=== PATIENT | female | born 1975 | race Caucasian/White ===

== ENCOUNTER 2020-11-17 14:16 | Inpatient (IN) | payer OTHER, SELFPAY ==
[2020-11-17] VITALS (8 sets, daily range): BP systolic 109–133; BP diastolic 63–83; PULSE 83–100; RESP 13–27; TEMP 36.8–37.7; O2SAT 87–95; BMI 38.7
--- NOTE | 2020-11-17 15:08 | XRR_ITS ---
PROCEDURE INFORMATION: Exam: XR Chest Exam date and time: 11/17/2020 3:12 PM Age: 45 years old Clinical indication: Fever TECHNIQUE: Imaging protocol: XR of the chest. Views: 1 view. COMPARISON: No relevant prior studies available. FINDINGS: Lungs: Nonspecific ground-glass infiltrates in the periphery of the bilateral lungs. Punctate calcified pulmonary granulomas are noted. Pleural spaces: No pleural effusion or pneumothorax noted. Heart/Mediastinum: Minimal lymph node calcifications are seen in the emilio. Bones/joints: Degenerative spine changes are noted. No fracture or other acute osseous abnormality. XR/XR chest 1V portable [id number] IMPRESSION: Nonspecific ground-glass infiltrates in the periphery of the bilateral lungs. Consider nonspecific viral pneumonia.
--- NOTE | 2020-11-17 15:19 | W.ED.FEVER ---
HPI - Fever General: Chief Complaint: Fever Stated Complaint: COVID SYMPTOMS HIGH FEVER Time Seen by Provider: 11/17/20 15:05 Source: patient and family Mode of arrival: ambulatory Limitations: no limitations History of Present Illness: HPI Narrative: Melba is a very nice 45-year-old female who comes in complaining of fever and Covid symptoms. Patient states for the past 11 days she had cough, sore throat, generalized malaise, muscle aches and pains and myalgias. Patient was told clinically that she had Covid but never received an actual test. The patient was prescribed a course of Zithromax and was also given a shot of steroids but she states this has not helped her symptoms. She denies any headache or urinary symptoms. Her cough is dry. Denies any neck pain or stiffness. She does have a cough. She is otherwise she just feels worn down and weak. Associated symptoms: Reports chills; Deny abdominal pain, flank pain, chest pain, confusion, diarrhea, dysuria, extremity pain, headache(s), nausea or vomiting Review of Systems Const: Reports: fever(s), chills, body aches, fatigue and malaise; Denies: diaphoresis Eyes: Denies: change in vision, blurry vision, photophobia, eye discomfort, eye discharge, eye redness or yellow eyes ENMT: Denies: throat pain, odynophagia, hoarseness, swelling of lips/tongue, ear or mastoid pain, ear discharge, change in hearing or nasal discharge Card: Denies: chest pain, palpitations, irregular heart rhythm, edema, lightheadedness, syncope, pre-syncope, dyspnea on exertion or orthopnea Resp: Reports: dyspnea and non-productive cough; Denies: productive cough, wheezing, hemoptysis or chest congestion GI: Denies: abdominal pain, nausea, vomiting, hematemesis, coffee ground emesis, heartburn, diarrhea, constipation, GI cramping, hematochezia or melena : Denies: flank pain, dysuria, urinary frequency, urinary urgency or hematuria Musc: Denies: neck pain, back pain, extremity pain, extremity swelling, joint pain, joint swelling, joint redness, joint warmth or joint stiffness Skin/Breast: Denies: rash, pruritus, erythema, skin pain or skin tenderness Neuro: Denies: headache(s), numbness in extremities, weakness in extremities, sensory changes, lack of coordination, difficulty walking, dizziness, vertigo, confusion, Slurred speech present or seizure-like activity Frank/Lymph: Denies: easy bruising, easy bleeding, petechiae, purpura or enlarged lymph nodes All/Imm: Denies: urticaria, throat swelling, tongue swelling, facial swelling or acute wheezing PFSH ED PFSH: Medical History CKD (chronic kidney disease) stage 3, GFR 30-59 ml/min Hypertension Physical Exam Const: COMMON NORMALS: no acute distress, patient oriented x3, no limitations and alert GENERAL APPEARANCE: cooperative HENMT: COMMON NORMALS: normocephalic, atraumatic, external ears normal, EAC's normal and Normal external nose present HEAD & SCALP: normal to inspection, normocephalic and atraumatic FACE & SINUS: normal facial exam and face symmetric NOSE: Normal external nose present and Normal nares present EXTERNAL EAR: Yes external ears normal EXTERNAL AUDITORY CANAL: EAC's normal MOUTH: Normal oral and palatal mucosa present, lip normal and tongue normal Eye: COMMON NORMALS: Equal, round and reactive pupils present and conjunctivae normal GENERAL EYE: appearance normal, both eyes and all related structures ALIGNMENT: Yes alignment normal PERIORBITAL: periorbital findings normal EYELID: eyelids normal CONJUNCTIVA: Yes conjunctivae normal SCLERA: sclerae normal PUPIL: Yes Equal, round and reactive pupils present Neck/C-Spine: COMMON NORMALS: full ROM, no lymphadenopathy, supple, no meningeal signs and no JVD GENERAL: Yes normal visual inspection and Yes trachea midline Chest: COMMONS NORMALS: normal inspection of the chest and normal palpation of entire chest wall Resp: COMMON NORMALS: normal respiratory effort, No retractions, No use of accessory muscles and clear to auscultation bilaterally EFFORT & INSPECTION: Yes able to speak in complete sentences and Yes symmetric chest movement AUSCULTATION: clear to auscultation bilaterally, no crackles, no rales, no rhonchi and no wheezes Cardio: COMMON NORMALS: no JVD, regular rate, regular rhythm, S1 normal heart sound present and S2 normal heart sound present RATE: regular rate RHYTHM: regular rhythm HEART SOUNDS: S1 normal heart sound present, S2 normal heart sound present, no click, no gallops, no murmurs and no rubs GI: COMMON NORMALS: Soft to palpation and No hepatosplenomegaly present PALPATION: Yes Soft to palpation, No Tenderness to palpation present (GI), No Guarding due to palpation present (GI), No Rigid due to palpation, Yes No hepatosplenomegaly present, No Hernia present, No Palpable mass present and No Pulsatile mass present : COMMON NORMALS: Yes no CVA tenderness BLADDER/KIDNEY EXAM: Yes no CVA tenderness EXTERNAL FEMALE EXAM: No Hernia present Back/Pelvis: COMMON NORMALS: no CVA tenderness, thoracic and lumbar spine normal to inspection, no thoracic nor lumbar tenderness and thoraco-lumbar ROM normal Extremity: COMMON NORMALS: normal to inspection, full ROM, capillary refill normal, no joint enlargement, no clubbing, cyanosis or edema and no calf tenderness Neuro: COMMON NORMALS: patient oriented x3, CN's II-XII intact bilaterally, moves all extremities, no focal motor deficits and no sensory deficits noted SENSORIUM/ORIENTATION: Yes alert MENINGEAL SIGNS: Yes no meningeal signs SPEECH: speech normal Psych: COMMON NORMALS: mental status grossly normal, Normal thought process present, cooperative, normal affect, speech normal and activity/motor behavior normal SPEECH: Yes normal speech THOUGHT PROCESS: Normal thought process present Skin: COMMON NORMALS: no rashes or lesions noted, turgor normal, no jaundice, no petechiae and no mottling GENERAL SKIN EXAM: no rashes or lesions noted and turgor normal Course Vital Signs: Vital signs: Vital Signs Temperature 98.3 F 11/17/20 14:31 Pulse Rate 87 11/17/20 14:31 Respiratory Rate 18 11/17/20 14:31 Blood Pressure 110/63 11/17/20 14:31 Pulse Oximetry 95 11/17/20 14:31 MDM - Fever MDM Narrative: Medical decision making narrative: 1800 - Care turned over to Dr. Castelan at change of shift. Lab Data: Attestation: I reviewed the patient's lab results. Labs: Lab Results 11/17/20 11/17/20 11/17/20 Range/Units 16:00 16:04 16:04 WBC 3.9 L (4.0-10.0) 10^3/ uL RBC 5.38 H (4.1-5.3) 10^6/u L Hgb 11.0 L (11.5-15.3) g/dL Hct 35.9 L (37.0-47.0) % MCV 66.7 L (81-99) fL MCH 20.4 L (28.0-34.0) pg MCHC 30.6 (30.0-36.0) g/dL RDW 16.2 H (12.1-15.1) % Plt Count 162 (130-400) 10^3/c mm MPV Not Reportable Neut % (Auto) 77.9 % Lymph % (Auto) 18.7 % [place] % (Auto) 2.6 % Eos % (Auto) 0.0 % Baso % (Auto) 0.3 % Neut # (Auto) 3.01 (1.8-7.7) 10^3/u L Lymph # (Auto) 0.7 L (0.8-4.8) 10^3/u L [place] # (Auto) 0.1 L (0.2-0.9) 10^3/u L Eos # (Auto) 0.0 (0.0-0.8) 10^3/u L Baso # (Auto) 0.0 (0.0-0.1) 10^3/u L Nucleated RBC % (a uto) 0 % Nucleated RBCs # 0.0 /100WBC PT (12.1-14.9) SECO NDS INR (0.8-1.2) APTT (23.9-36.7) SECO NDS Sodium 138 (136-145) mmol/L Potassium 4.0 (3.5-5.1) mmol/L Chloride 102 (98-107) mmol/L Carbon Dioxide 24 (22-29) mmol/L Anion Gap 16.0 (5-19) BUN 19 (6-20) mg/dL Creatinine 1.4 H (0.5-0.9) mg/dL GFR Calculation 40.7 L (90-130) mL/min Glucose 115 (65-115) mg/dL Calculated Osmolal ity 289 (285-295) mOsm/k g Lactic Acid (0.5-2.2) mmol/L Calcium 8.3 L (8.5-10.5) mg/dL Magnesium 2.0 (1.7-2.3) mg/dL Total Bilirubin 0.3 (0.15-1.2) mg/dL AST 371 H (0-32) U/L ALT 203 H (0-33) U/L Alkaline Phosphata se 59 (35-105) IU/L Total Protein 7.3 (6.6-8.7) g/dL Albumin 4.1 (3.5-5.2) g/dL Globulin 3.2 (1.3-4.6) g/dL Lipase (13-60) U/L Urine Color Dark yellow (Yellow) Urine Appearance Sl hazy (CLEAR) Urine pH 5 (5-7) Ur Specific Gravit y 1.020 (1.005-1.030) Urine Protein 2+ H (Negative) Urine Glucose (UA) Norm (Normal) Urine Ketones Negative (Negative) Urine Blood 3+ H (Negative) Urine Nitrate Negative (Negative) Urine Bilirubin 1+ H (Negative) Urine Urobilinogen Norm (Negative) mg/dL Ur Leukocyte Angelina ase Negative (Negative) Urine RBC 15-25 H (0-2) /hpf Urine WBC 5-10 H (0-5) /hpf Ur Squamous Epith Cells 0-4 H (0-5) /hpf Amorphous Sediment Not Reportable Urine Bacteria 2+ H (NONE) /hpf Hyaline Casts 0-4 H /lpf Coarse Granular Ca sts 15-25 H /lpf Urine Mucus Trace /hpf Acetaminophen (10-30) ug/mL Influenza Type A A g (Negative) Influenza Type B A g (Negative) SARS-CoV-2 Ag (Rap id) (Negative) 11/17/20 11/17/20 11/17/20 Range/Units 16:04 16:04 16:08 WBC (4.0-10.0) 10^3/ uL RBC (4.1-5.3) 10^6/u L Hgb (11.5-15.3) g/dL Hct (37.0-47.0) % MCV (81-99) fL MCH (28.0-34.0) pg MCHC (30.0-36.0) g/dL RDW (12.1-15.1) % Plt Count (130-400) 10^3/c mm MPV Neut % (Auto) % Lymph % (Auto) % [place] % (Auto) % Eos % (Auto) % Baso % (Auto) % Neut # (Auto) (1.8-7.7) 10^3/u L Lymph # (Auto) (0.8-4.8) 10^3/u L [place] # (Auto) (0.2-0.9) 10^3/u L Eos # (Auto) (0.0-0.8) 10^3/u L Baso # (Auto) (0.0-0.1) 10^3/u L Nucleated RBC % (a uto) % Nucleated RBCs # /100WBC PT (12.1-14.9) SECO NDS INR (0.8-1.2) APTT (23.9-36.7) SECO NDS Sodium (136-145) mmol/L Potassium (3.5-5.1) mmol/L Chloride (98-107) mmol/L Carbon Dioxide (22-29) mmol/L Anion Gap (5-19) BUN (6-20) mg/dL Creatinine (0.5-0.9) mg/dL GFR Calculation (90-130) mL/min Glucose (65-115) mg/dL Calculated Osmolal ity (285-295) mOsm/k g Lactic Acid 1.8 (0.5-2.2) mmol/L Calcium (8.5-10.5) mg/dL Magnesium (1.7-2.3) mg/dL Total Bilirubin (0.15-1.2) mg/dL AST (0-32) U/L ALT (0-33) U/L Alkaline Phosphata se (35-105) IU/L Total Protein (6.6-8.7) g/dL Albumin (3.5-5.2) g/dL Globulin (1.3-4.6) g/dL Lipase 79 H (13-60) U/L Urine Color (Yellow) Urine Appearance (CLEAR) Urine pH (5-7) Ur Specific Gravit y (1.005-1.030) Urine Protein (Negative) Urine Glucose (UA) (Normal) Urine Ketones (Negative) Urine Blood (Negative) Urine Nitrate (Negative) Urine Bilirubin (Negative) Urine Urobilinogen (Negative) mg/dL Ur Leukocyte Angelina ase (Negative) Urine RBC (0-2) /hpf Urine WBC (0-5) /hpf Ur Squamous Epith Cells (0-5) /hpf Amorphous Sediment Urine Bacteria (NONE) /hpf Hyaline Casts /lpf Coarse Granular Ca sts /lpf Urine Mucus /hpf Acetaminophen < 5.0 L (10-30) ug/mL Influenza Type A A g Negative (Negative) Influenza Type B A g Negative (Negative) SARS-CoV-2 Ag (Rap id) (Negative) 11/17/20 11/17/20 Range/Units 16:25 17:10 WBC (4.0-10.0) 10^3/ uL RBC (4.1-5.3) 10^6/u L Hgb (11.5-15.3) g/dL Hct (37.0-47.0) % MCV (81-99) fL MCH (28.0-34.0) pg MCHC (30.0-36.0) g/dL RDW (12.1-15.1) % Plt Count (130-400) 10^3/c mm MPV Neut % (Auto) % Lymph % (Auto) % [place] % (Auto) % Eos % (Auto) % Baso % (Auto) % Neut # (Auto) (1.8-7.7) 10^3/u L Lymph # (Auto) (0.8-4.8) 10^3/u L [place] # (Auto) (0.2-0.9) 10^3/u L Eos # (Auto) (0.0-0.8) 10^3/u L Baso # (Auto) (0.0-0.1) 10^3/u L Nucleated RBC % (a uto) % Nucleated RBCs # /100WBC PT 12.80 (12.1-14.9) SECO NDS INR 0.94 (0.8-1.2) APTT 29.7 (23.9-36.7) SECO NDS Sodium (136-145) mmol/L Potassium (3.5-5.1) mmol/L Chloride (98-107) mmol/L Carbon Dioxide (22-29) mmol/L Anion Gap (5-19) BUN (6-20) mg/dL Creatinine (0.5-0.9) mg/dL GFR Calculation (90-130) mL/min Glucose (65-115) mg/dL Calculated Osmolal ity (285-295) mOsm/k g Lactic Acid (0.5-2.2) mmol/L Calcium (8.5-10.5) mg/dL Magnesium (1.7-2.3) mg/dL Total Bilirubin (0.15-1.2) mg/dL AST (0-32) U/L ALT (0-33) U/L Alkaline Phosphata se (35-105) IU/L Total Protein (6.6-8.7) g/dL Albumin (3.5-5.2) g/dL Globulin (1.3-4.6) g/dL Lipase (13-60) U/L Urine Color (Yellow) Urine Appearance (CLEAR) Urine pH (5-7) Ur Specific Gravit y (1.005-1.030) Urine Protein (Negative) Urine Glucose (UA) (Normal) Urine Ketones (Negative) Urine Blood (Negative) Urine Nitrate (Negative) Urine Bilirubin (Negative) Urine Urobilinogen (Negative) mg/dL Ur Leukocyte Angelina ase (Negative) Urine RBC (0-2) /hpf Urine WBC (0-5) /hpf Ur Squamous Epith Cells (0-5) /hpf Amorphous Sediment Urine Bacteria (NONE) /hpf Hyaline Casts /lpf Coarse Granular Ca sts /lpf Urine Mucus /hpf Acetaminophen (10-30) ug/mL Influenza Type A A g (Negative) Influenza Type B A g (Negative) SARS-CoV-2 Ag (Rap id) Negative (Negative) Imaging Data^: CXR: Attestation: I personally reviewed and interpreted this imaging study as follows: My impression: Normal heart size. Diffuse patchy infiltrates consistent with a viral pneumonitis Discharge Plan Discharge Condition: Stable Prescriptions: No Action labetalol 200 mg tablet 200 mg PO BID RF: 0 albuterol sulfate 2.5 mg /3 mL (0.083 %) solution for nebulization 2.5 mg inhalation Q6H RF: 0 azithromycin 250 mg tablet See Rx Instructions .ROUTE .COMPLEX RF: 0 potassium chloride 10 mEq tablet extended release 20 meq PO QAM RF: 0 Tylenol Extra Strength 500 mg Tablet 1,000 mg PO PRN RF: 0 Vitamin D2 1,250 mcg (50,000 unit) capsule 50,000 unit PO Q7D RF: 0 ProAir HFA 90 mcg/actuation Hfa Aerosol Inhaler 2 puff INHALATION Q4H PRN (Reason: Shortness Of Breath) RF: 0 losartan-hydrochlorothiazide 50-12.5 mg tablet 1 tab PO DAILY RF: 0 Coding Level of Care Code ED Mission Coordinator for Chg Fwd Exam Comprehensive
[2020-11-17 16:25] LABS: Bilirubin Urine 1+ (Negative); Blood Urine 3+ (Negative); Glucose Urine UA Norm (Normal); Ketones Urine Negative (Negative); Leukocyte Esterase Urine Negative (Negative); Nitrate Urine Negative (Negative); Protein Urine 2+ (Negative); Urine Appearance SL Hazy (CLEAR); Urine Color Dark Yellow (Yellow); Urobilinogen Urine Norm (Negative); pH Urine 5 (5-7)
[2020-11-17 16:26] LABS: Add Urine Microscopic? YES
[2020-11-17 16:30] LABS: Add Urine Culture? Yes; Bacteria Urine 2+ /hpf; Coarse Granular Casts Urine 15-25 /lpf; Hyaline Casts Urine 0-4 /lpf; Mucus Urine TRACE /hpf; RBC Urine 15-25 /hpf (0-2); Squamous Epithelial Cell Urine 0-4 /hpf (0-5)
[2020-11-17 16:45] LABS: Influenza A by IFA Negative (Negative); Influenza B by IFA Negative (Negative)
[2020-11-17 16:45] LABS: SARS Covid-2 Antigen Negative (Negative)
[2020-11-17 16:46] LABS: Lactic Sepsis W/Reflex 1.8 mmol/L (0.5-2.2)
[2020-11-17 16:48] LABS: Alanine Aminotransferase 203 U/L (0-33); Albumin Level 4.1 g/dL (3.5-5.2); Alkaline Phosphatase 59 IU/L (35-105); Aspartate Amino Transferase 371 U/L (0-32); Blood Urea Nitrogen 19 mg/dL (6-20); Calcium 8.3 mg/dL (8.5-10.5); Carbon Dioxide 24 mmol/L (22-29); Chloride 102 mmol/L (98-107); Globulin 3.2 g/dL (1.3-4.6); Glomerular Filtration Rate 40.7 mL/min (90-130); Glucose 115 mg/dL (65-115); Osmolality Calculated 289 mOsm/kg (285-295); Sodium 138 mmol/L (136-145); Total Bilirubin 0.3 mg/dL (0.15-1.2); Total Protein 7.3 g/dL (6.6-8.7)
[2020-11-17 16:54] LABS: Basophils % 0.3 %; Hematocrit 35.9 % (37.0-47.0); Lymphocytes # 0.7 10^3/uL (0.8-4.8); Lymphocytes % 18.7 %; Mean Corpuscular HGB Conc 30.6 g/dL (30.0-36.0); Mean Corpuscular Hemoglobin 20.4 pg (28.0-34.0); Mean Corpuscular Volume 66.7 fL (81-99); Monocytes # 0.1 10^3/uL (0.2-0.9); Monocytes % 2.6 %; Neutrophils # 3.01 10^3/uL (1.8-7.7); Neutrophils % 77.9 %; Nucleated Red Blood Cells % 0 %; Platelet Count 162 10^3/cmm (130-400); Red Blood Count 5.38 10^6/uL (4.1-5.3); Red Cell Distribution Width 16.2 % (12.1-15.1); White Blood Count 3.9 10^3/uL (4.0-10.0)
--- NOTE | 2020-11-17 16:59 | USR_ITS ---
PROCEDURE INFORMATION: Exam: US Abdomen, Limited; Right Upper Quadrant Exam date and time: 11/17/2020 5:50 PM Age: 45 years old Clinical indication: Other: Elevated labs; Additional info: Pain TECHNIQUE: Imaging protocol: US abdomen. Real time ultrasound with image documentation. Limited exam focused on the right upper quadrant. COMPARISON: No relevant prior studies available. FINDINGS: Liver: Hepatomegaly noted. Liver measures 19 cm in length. Abnormally increased hepatic echogenicity, consistent with hepatic steatosis. No focal liver lesion demonstrated. Gallbladder: The gallbladder is unremarkable. No gallstones or sludge demonstrated. No gallbladder wall thickening. No pericholecystic fluid. Common bile duct: No biliary dilatation. The common duct measures 2 mm in diameter.The aorta is unremarkable as demonstrated. Pancreas: Limited visualization of the pancreas. No gross pancreatic abnormality. Right kidney: Right kidney measures 11.6 cm in length. Normal renal echotexture. No hydronephrosis. No cyst, mass, or calculus demonstrated. Inferior vena cava: The intrahepatic portion of the inferior vena cava is unremarkable. US/US gall bladder [id number] IMPRESSION: 1. Hepatomegaly noted. Liver measures 19 cm in length. Abnormally increased hepatic echogenicity, consistent with hepatic steatosis. 2. Hepatomegaly and hepatic steatosis. No focal liver lesion. 3. No gallbladder/biliary disease demonstrated.
--- NOTE | 2020-11-17 17:00 | CTR_ITS ---
PROCEDURE INFORMATION: Exam: CT Abdomen And Pelvis With Contrast Exam date and time: 11/17/2020 5:18 PM Age: 45 years old Clinical indication: Abnormal findings; Abnormal lab test; Elevated liver enzymes; Patient HX: Elev ast/alt n/v and hematuria; Additional info: Abdominal pain TECHNIQUE: Imaging protocol: Computed tomography of the abdomen and pelvis with contrast. Radiation optimization: All CT scans at this facility use at least one of these dose optimization techniques: automated exposure control; mA and/or kV adjustment per patient size (includes targeted exams where dose is matched to clinical indication); or iterative reconstruction. Contrast material: VISI 320; Contrast volume: 95 ml; Contrast route: INTRAVENOUS (IV); COMPARISON: US gall bladder [id number] 11/17/2020 5:35 PM RADIATION DOSE METRICS: Total DLP (mGy-cm): 1822.12 FINDINGS: Lungs: Nonspecific ground-glass infiltrates at the bilateral lung bases. Punctate calcified granulomas also noted at the lung bases. Liver: Decreased hepatic density is noted, consistent with hepatic steatosis. Gallbladder and bile ducts: No calcified stones. No ductal dilation. Pancreas: The pancreas is normal in appearance. No pancreatic duct dilatation. Spleen: Calcified granulomas are noted in the spleen. Adrenal glands: The adrenal glands appear within normal limits. Kidneys and ureters: The kidneys are normal in morphology. No hydronephrosis. No solid mass. Stomach and bowel: No acute gastric abnormality demonstrated. The small bowel is unremarkable as demonstrated. No acute abnormality/inflammatory change of the colon. The small bowel is unremarkable as demonstrated. Appendix: The appendix is normal in appearance. No evidence of appendicitis. Intraperitoneal space: No pneumoperitoneum. No significant fluid collection. Vasculature: No abdominal aortic aneurysm. Lymph nodes: No pathologically enlarged lymph nodes are demonstrated. Urinary bladder: The urinary bladder is unremarkable in appearance. Reproductive: Uterus and adnexa appear unremarkable. Bones/joints: Mild degenerative spine changes. No acute osseous abnormality. Soft tissues: Unremarkable. CT/CT abdomen pelvis w con* [id number] IMPRESSION: 1. Nonspecific ground-glass infiltrates at the bilateral lung bases. Consider nonspecific viral pneumonia. 2. Decreased hepatic density is noted, consistent with hepatic steatosis. 3. Findings of old granulomatous disease are identified. Radiation Dose CTDIVOL = (mGy): DLP = 1822.12 (mGy-cm)
[2020-11-17 17:05] LABS: Slide Review Slide Review Perform
[2020-11-17] MEDS: sodium chloride 0.9% 1,000 ML 999 ML IV (17:05)
[2020-11-17] MEDS: cefTRIAXone 1,000 MG in sodium chloride 0.9% (plus) 50 ML 100 MG IV (17:16)
[2020-11-17 17:17] LABS: Lipase 79 U/L (13-60)
[2020-11-17 17:19] LABS: Acetaminophen < 5.0 ug/mL (10-30)
[2020-11-17 17:47] LABS: INR 0.94 (0.8-1.2)
[2020-11-17 17:48] LABS: Partial Thromboplastin Time 29.7 SECONDS (23.9-36.7)
[2020-11-17] MEDS: iodixanol 320 mg/mL 100mL Btl IV (17:54)
[2020-11-17 18:31] LABS: Hepatitis A Antibody IgM Non-Reactive (Nonreactive); Hepatitis B Core AB, Total Non-Reactive (Nonreactive); Hepatitis B Surface AB 3.5 (11.5-1000); Hepatitis B Surface Antigen Non-Reactive (Nonreactive); Hepatitis C Virus Antibody Non-Reactive (Nonreactive)
[2020-11-17 18:44] LABS: ABG PCO2 32.2 mmHg (35-45); ABG PH Result 7.45 (7.35-7.45); Alveolar-Arterial Oxygen Gradi 7.9 mmHg (5-10); Arterial Blood Gas Hematocrit 31.7 % (37-47); Base Excess ABG -1.1 mmol/L (-2.0-2.0); Blood Gas Allen Test Pos; Blood Gas Operator Identificat CAK; Blood Gas Sample Site Radial, left; Blood Gas Sample Type Arterial; Carboxyhemoglobin 0.7 %THgb (0.4-20.1); HCO3 ABG 22.4 mmol/L (22-26); HGB O2 Sat 83.6 % (95-100); Ionized Calcium Level - ABG 1.1 mmol/L (1.1-1.4); Methemoglobin 0.8 % (0.4-1.5); Oxygen Device ROOM AIR; Oxygen Saturation ABG 84.9; PO2 ABG 48.4 mmHg (80.0-100.0); Potassium Level - ABG 3.9 mmol/L (3.5-5.0); Total Hemoglobin 10.3 g/dL (12-16)
--- NOTE | 2020-11-17 19:33 | P.HP_ITS ---
Providers/Chief Complaint Chief Complaint: COVID SYMPTOMS HIGH FEVER History of Present Illness Melba Okeefe is a 45 year old female who has previous history of hypertension, presented today with chief complaint of shortness of breath, myalgias, fever and diarrhea. Patient is stating that her symptoms started 11 days ago, at home she noticed fever of 106 last night, her oxygen saturation has been trending down her lowest saturation reading was 80% on room air, she is denying chest pain however endorsing diarrhea without any vomiting, because of worsening of her symptoms she decided to come to the hospital for further evaluation. Diagnosis in the ER revealed sepsis, concerning laboratory findings consistent with viral pneumonia, chest x-ray showing groundglass opacities, mild transaminases abnormality noted CT abdomen revealed fatty infiltration of liver, no active cholelithiasis or cholecystitis Covid antigen negative however PCR sent, flu panel negative Hepatitis panel negative Started on remdesivir and Decadron currently saturating well on 4 L nasal cannula, ABG consistent with severe hypoxia, meets sepsis criteria Review of Systems Const: Reports: fever(s), chills, body aches, change in appetite, fatigue and malaise; Denies: change in weight Eyes: Denies: change in vision ENMT: Denies: throat pain Card: Reports: dyspnea on exertion; Denies: chest pain Resp: Reports: dyspnea GI: Reports: nausea and diarrhea; Denies: abdominal pain : Denies: flank pain Musc: Denies: neck pain Skin/Breast: Denies: rash Neuro: Denies: headache(s) Psych: Reports: anxiety Endo: Denies: polyuria Frank/Lymph: Denies: easy bruising All/Imm: Denies: urticaria Medications/Allergies Home Medications Medication Instructions Recorded Confirmed Last Taken Type acetaminophen [Tylenol Extra 1,000 mg PO PRN 11/17/20 11/17/20 11/17/20 History Strength] albuterol sulfate 2.5 mg INHALATION Q6H 11/17/20 11/17/20 11/17/20 12:00 History albuterol sulfate [ProAir HFA] 2 puff INHALATION Q4H PRN 11/17/20 11/17/20 U nknown History azithromycin See Rx Instructions .ROUTE .COMPLEX 11/17/20 11/17/20 11/17/20 06:00 History LAST DOSE TODAY ergocalciferol (vitamin D2) 50,000 unit PO Q7D 11/17/20 11/17/20 Unknown History [Vitamin D2] labetalol 200 mg PO BID 11/17/20 11/17/20 11/17/20 06:00 History losartan-hydrochlorothiazide 1 tab PO DAILY 11/17/20 11/17/20 11/17/20 History potassium chloride 20 meq PO QAM 11/17/20 11/17/20 11/17/20 History Allergies Allergy/AdvReac Type Severity Reaction Status Date / Time Penicillins Allergy ALGY-Rash Verified 11/17/20 17:23 PFSH Acute PFSH: Medical History CKD (chronic kidney disease) stage 3, GFR 30-59 ml/min Hypertension Surgical History No pertinent past surgical history Family History Other Diabetes Denies family history of Chronic kidney disease (CKD) Cancer Social History Smoking and tobacco status: never smoked Alcohol intake: never Substance/Drug Use: never Household members: spouse Housing: House Marital status: Vitals/I&O/Wt Last Vital Signs Temp 98.3 F 11/17/20 14:31 Pulse 90 11/17/20 19:00 Resp 27 H 11/17/20 19:00 BP 119/74 11/17/20 19:00 Pulse Ox 92 11/17/20 19:00 Weight last 48 hrs Weight 108.862 kg Physical Exam Narrative: EXAM NARRATIVE: Young female, appears stated age, severely dehydrated with dry mucous membranes, facial flushing Currently saturating well on folded nasal cannula Hemodynamically stable Tachycardic S1, S2 sinus tachycardia no signs of heart failure Bilateral breath sounds no active wheezing rhonchi or crackles No active use of respiratory sensory muscles Abdomen soft nontender Lower extremity no edema gangrene ulcer Appropriate mood and affect Very cooperative and pleasant during my evaluation at the bedside No sign of cellulitis Data : 11/17/20 16:04 11/17/20 16:04 Micro: Microbiology 11/17/20 17:10 Blood Culture - Preliminary Blood SPECIMEN COLLECTED 11/17/20 16:04 Blood Culture - Preliminary Blood SPECIMEN COLLECTED A&P Assessment and plan (1) Ongoing symptomatic disease due to COVID-19 virus: Status: Acute (2) Sepsis: Status: Acute Additional A&P Information Sepsis secondary to viral pneumonia Her symptoms are consistent with COVID-19 SARS Currently saturating well on 40 nasal cannula Severe category Started on Decadron and remdesivir, vitamin C and zinc regimen Check inflammatory panel every 48 hours Requested procalcitonin level Sepsis criteria met with fever, tachycardia, leukopenia Mild transaminases secondary to COVID-19/sepsis covid Antigen negative however PCR sent Anticoagulation with heparin Chronic kidney disease Patient is attributing her chronic kidney disease to hypertension and use of nephrotoxic agents I will keep her on labetalol for now Severe dehydration Patient has dry mucous membranes, extremely thirsty Would keep her on low-dose maintenance fluid closely monitor for development of pulmonary edema or signs of fluid overload Check CPK Hematuria No signs of UTI no urolithiasis Please repeat UA before discharge to rule out persistent hematuria Full code Cardiac diet DVT prophylaxis Heparin Her is not experiencing similar symptoms, however he was educated to get Covid test in case he develops symptoms Attestations Medical Necessity Statement*: Anticipating stay in the hospital because more than 2 midnights for COVID-19 sepsis, qualifies for severe category Time Spent in Patient Care: (>than 50% of time spent in counselling and/or direct pt care on unit) . 40mins Coding Level of Care Code Acute Sterile Instrument Technician for Bhanu Sanchez Diagnoses Ongoing symptomatic disease due to COVID-19 virus U07.1 Sepsis A41.9
[2020-11-17] MEDS: acetaminophen 500 mg Tablet 1000 MG PO (20:06)
[2020-11-17] MEDS: sodium chloride 0.9% 500 ML 999 ML IV (20:20)
[2020-11-17 21:37] LABS: D Dimer 1.47 ug/mIFEU (0-0.59)
[2020-11-17] MEDS: dexamethasone 10 mg/mL INJ IVP (22:25)
[2020-11-17] MEDS: heparin 5,000 unit/mL INJ 1 mL 5000 UNIT SUBCUT (22:25)
[2020-11-17] MEDS: sodium chloride 0.9% 1,000 ML 75 ML IV (22:26)
[2020-11-17 22:35] LABS: Glucose Point of Care 117 mg/dL (70-110)
[2020-11-17] MEDS: remdesivir 200 MG in sodium chloride 0.9% (100 ml) 100 ML 100 MG IV (23:42)
[2020-11-18] VITALS (8 sets, daily range): BP systolic 113–144; BP diastolic 69–85; PULSE 71–84; RESP 16–18; TEMP 36.6–37; O2SAT 91–96
[2020-11-18 05:48] LABS: Hematocrit 35.3 % (37.0-47.0); Hemoglobin 10.8 g/dL (11.5-15.3); Lymphocytes # 0.6 10^3/uL (0.8-4.8); Lymphocytes % 21.2 %; Mean Corpuscular HGB Conc 30.6 g/dL (30.0-36.0); Mean Corpuscular Hemoglobin 20.6 pg (28.0-34.0); Mean Corpuscular Volume 67.4 fL (81-99); Monocytes # 0.1 10^3/uL (0.2-0.9); Monocytes % 2.4 %; Neutrophils # 2.18 10^3/uL (1.8-7.7); Neutrophils % 75.7 %; Nucleated Red Blood Cells % 0 %; Platelet Count 166 10^3/cmm (130-400); Red Blood Count 5.24 10^6/uL (4.1-5.3); Red Cell Distribution Width 16.2 % (12.1-15.1); White Blood Count 2.9 10^3/uL (4.0-10.0)
[2020-11-18] MEDS: heparin 5,000 unit/mL INJ 1 mL 5000 UNIT SUBCUT ×2 (06:06→12:44)
[2020-11-18 06:09] LABS: Procalcitonin 0.33 ng/mL (0-0.5)
[2020-11-18 06:20] LABS: Alanine Aminotransferase 176 U/L (0-33); Albumin Level 3.8 g/dL (3.5-5.2); Alkaline Phosphatase 55 IU/L (35-105); Aspartate Amino Transferase 337 U/L (0-32); Blood Urea Nitrogen 17 mg/dL (6-20); C Reactive Protein 62.1 mg/L (0.0-4.9); Calcium 8.1 mg/dL (8.5-10.5); Carbon Dioxide 21 mmol/L (22-29); Chloride 104 mmol/L (98-107); Globulin 3.1 g/dL (1.3-4.6); Glomerular Filtration Rate 53.7 mL/min (90-130); Glucose 199 mg/dL (65-115); Magnesium 2.1 mg/dL (1.7-2.3); Osmolality Calculated 289 mOsm/kg (285-295); Sodium 136 mmol/L (136-145); Total Bilirubin 0.2 mg/dL (0.15-1.2); Total Protein 6.9 g/dL (6.6-8.7)
[2020-11-18 06:21] LABS: Anion Gap 15.3 (5-19); Potassium 4.3 mmol/L (3.5-5.1)
[2020-11-18 06:28] LABS: Slide Review Slide Review Perform
[2020-11-18 06:29] LABS: Glucose Point of Care 204 mg/dL (70-110)
[2020-11-18 06:49] LABS: Creatine Phosphokinase 6659 U/L (26-192)
[2020-11-18] MEDS: albuterol 8 gm MDI 2 PUFF INHALATION (08:57)
[2020-11-18] MEDS: zinc gluconate 50 mg Tablet PO (10:37)
[2020-11-18] MEDS: dexamethasone 4 mg Tablet 6 MG PO (10:37)
[2020-11-18] MEDS: ascorbic acid 500 mg Tablet PO (10:37)
[2020-11-18] MEDS: labetalol 200 mg Tablet PO ×2 (10:38→17:06)
[2020-11-18 12:03] LABS: Glucose Point of Care 148 mg/dL (70-110)
[2020-11-18] MEDS: sodium chloride 0.9% 1,000 ML 75 ML IV (12:42)
--- NOTE | 2020-11-18 13:09 | PC.NURSE ---
Patient is on period.
--- NOTE | 2020-11-18 13:58 | PM.PN ---
Subjective Subjective: Interval history: Today she reports she is feeling a bit better. She was not getting quite as short of breath try to get up today to walk to the restroom. Denies chest pain or pressure. He is having cough productive of some greenish sputum. He is experiencing burning/pain with urination. Reports that blood in her urine may be due to her currently having her menses. Denies headache. Denies nausea vomiting or diarrhea. Vitals/I&O/Wt Last Vital Signs Temp 98.4 F 11/18/20 12:00 Pulse 78 11/18/20 12:00 Resp 18 11/18/20 12:00 BP 115/78 11/18/20 12:00 Pulse Ox 94 11/18/20 12:00 11/17/20 11/18/20 11/18/20 22:59 06:59 14:59 Intake Total 1670 / 1670 350 / 2020 1600 / 1600 Output Total 600 / 600 600 / 600 Balance 1670 / 1670 -250 / 1420 1000 / 1000 Weight last 48 hrs Weight 108.862 kg Physical Exam Const: COMMON NORMALS: no acute distress, patient oriented x3 and alert GENERAL APPEARANCE: comfortable (At rest) ORIENTATION/CONSCIOUSNESS: Yes awake HENMT: COMMON NORMALS: oropharynx normal Neck/C-Spine: COMMON NORMALS: no JVD Resp: COMMON NORMALS: normal respiratory effort and clear to auscultation bilaterally AUSCULTATION: clear to auscultation bilaterally Cardio: COMMON NORMALS: no JVD, regular rhythm, S1 normal heart sound present, S2 normal heart sound present and No murmurs present (Cardio) RHYTHM: regular rhythm HEART SOUNDS: S1 normal heart sound present and S2 normal heart sound present GI: COMMON NORMALS: Normal to inspection, nondistended, normoactive bowel sounds present, Soft to palpation and non-tender PALPATION: Yes Soft to palpation Extremity: COMMON NORMALS: no joint enlargement and no pedal edema Neuro: COMMON NORMALS: patient oriented x3 and moves all extremities SENSORIUM/ORIENTATION: Yes alert Skin: COMMON NORMALS: no rashes or lesions noted GENERAL SKIN EXAM: no rashes or lesions noted Data : 11/18/20 05:13 11/18/20 05:13 Micro: Microbiology 11/17/20 17:10 Blood Culture - Preliminary Blood SPECIMEN COLLECTED 11/17/20 16:04 Blood Culture - Preliminary Blood SPECIMEN COLLECTED A&P Assessment and plan (1) Ongoing symptomatic disease due to COVID-19 virus: Hypoxic respiratory failure, requiring 4 L oxygen by nasal cannula, suspected COVID-19. Pending PCR. Today she is subjectively feeling little better. Hypoxia persists. She is having cough, productive of some greenish phlegm. She is having symptoms of UTI. Allergic to penicillin. Will start on Levaquin for UTI, possible atypical pneumonia. Continue remdesivir, Decadron Status: Acute (2) Sepsis: As above. Symptoms of UTI, abnormal UA, appears to also have pneumonia, suspected atypical, but possible bacterial given greenish sputum. Will request sputum culture. Starting on Levaquin. With leukopenia, transaminitis, will check tick panel. Status: Acute Additional A&P Information UTI: She reports having symptoms with urination, asks about UTI. Starting antibiotic as above. Follow-up culture. No sign of obstruction on CT abdomen pelvis. Rhabdomyolysis: Discussed with her. Recheck CK. Continue IV hydration for now. Chronic kidney disease Patient is attributing her chronic kidney disease to hypertension and use of nephrotoxic agents I will keep her on labetalol for now Transaminitis: Pending assessment for COVID-19. And tick panel. Is noted to have appearance of fatty liver infiltration on imaging. Severe dehydration: Improving, with rhabdomyolysis, for now continue hydration, recheck CK. She exercises about 4 times a week. Last time she says exercised on Wednesday-Wednesday of last week. Usually stays well-hydrated. Hematuria: Discussed with her. May be secondary to menses and she states she is currently on her period. Discussed with her to follow-up UA with primary provider to reassess for resolution. Attestations Medical Necessity Statement*: Continue admission for assessment and management of hypoxic respiratory failure, suspected severe COVID-19 infection, atypical pneumonia, possible superimposed bacterial infection, rhabdomyolysis in setting of chronic kidney disease. Coding Level of Care Code Acute Family And Consumer Education Teacher for Bhanu Sanchez Diagnoses Ongoing symptomatic disease due to COVID-19 virus U07.1 Sepsis A41.9
[2020-11-18 14:10] LABS: Creatine Phosphokinase 5807 U/L (26-192)
[2020-11-18 14:14] LABS: Coronavirus Test Green County Detected
[2020-11-18] MEDS: levofloxacin-dextrose 5 % 750 MG/150 ML PREMIX 100 MG IV (15:12)
[2020-11-18] MEDS: remdesivir 100 MG in sodium chloride 0.9% (100 ml) 100 ML IV (17:06)
[2020-11-18 17:39] LABS: Glucose Point of Care 192 mg/dL (70-110)
[2020-11-18 20:35] LABS: Glucose Point of Care 202 mg/dL (70-110)
[2020-11-18] MEDS: enoxaparin 40 mg/0.4 mL Syringe SUBCUT (21:25)
[2020-11-19] VITALS (10 sets, daily range): BP systolic 114–152; BP diastolic 74–92; PULSE 60–86; RESP 16–20; TEMP 36.3–37; O2SAT 92–97
[2020-11-19] MEDS: sodium chloride 0.9% 1,000 ML 75 ML IV (03:14)
[2020-11-19 06:17] LABS: Hematocrit 31.6 % (37.0-47.0); Hemoglobin 9.7 g/dL (11.5-15.3); Lymphocytes # 1.1 10^3/uL (0.8-4.8); Lymphocytes % 25.3 %; Mean Corpuscular HGB Conc 30.7 g/dL (30.0-36.0); Mean Corpuscular Hemoglobin 20.5 pg (28.0-34.0); Mean Corpuscular Volume 66.8 fL (81-99); Monocytes # 0.3 10^3/uL (0.2-0.9); Monocytes % 7.1 %; Neutrophils # 2.94 10^3/uL (1.8-7.7); Neutrophils % 67.1 %; Nucleated Red Blood Cells % 0 %; Platelet Count 184 10^3/cmm (130-400); Red Blood Count 4.73 10^6/uL (4.1-5.3); Red Cell Distribution Width 16.2 % (12.1-15.1); White Blood Count 4.4 10^3/uL (4.0-10.0)
[2020-11-19 06:34] LABS: D Dimer 1.03 ug/mIFEU (0-0.59)
[2020-11-19 06:43] LABS: C Reactive Protein 19.3 mg/L (0.0-4.9)
[2020-11-19 06:45] LABS: Alanine Aminotransferase 141 U/L (0-33); Albumin Level 3.5 g/dL (3.5-5.2); Alkaline Phosphatase 52 IU/L (35-105); Anion Gap 14.1 (5-19); Aspartate Amino Transferase 227 U/L (0-32); Blood Urea Nitrogen 20 mg/dL (6-20); Calcium 8.2 mg/dL (8.5-10.5); Carbon Dioxide 22 mmol/L (22-29); Chloride 108 mmol/L (98-107); Globulin 2.8 g/dL (1.3-4.6); Glucose 145 mg/dL (65-115); Osmolality Calculated 295 mOsm/kg (285-295); Potassium 4.1 mmol/L (3.5-5.1); Sodium 140 mmol/L (136-145); Total Bilirubin 0.2 mg/dL (0.15-1.2); Total Protein 6.3 g/dL (6.6-8.7)
[2020-11-19 06:45] LABS: Glucose Point of Care 147 mg/dL (70-110)
[2020-11-19 07:18] LABS: Slide Review Slide Review Perform
[2020-11-19] MEDS: zinc gluconate 50 mg Tablet PO (07:58)
[2020-11-19] MEDS: ascorbic acid 500 mg Tablet PO (07:58)
[2020-11-19] MEDS: dexamethasone 4 mg Tablet 6 MG PO (07:58)
[2020-11-19] MEDS: labetalol 200 mg Tablet PO ×2 (08:00→17:33)
[2020-11-19] MEDS: albuterol 8 gm MDI 2 PUFF INHALATION ×2 (08:01→15:21)
[2020-11-19 08:56] LABS: Creatine Phosphokinase 3567 U/L (26-192)
[2020-11-19] MEDS: ondansetron 2 mg/ML SDV 2 mL 4 MG IVP (09:00)
[2020-11-19] MEDS: guaiFENesin-dextromethorphan UDC 10 mL PO ×2 (10:49→17:34)
[2020-11-19] MEDS: acetaminophen 500 mg Tablet PO ×2 (10:49→17:33)
[2020-11-19 12:14] LABS: Glucose Point of Care 200 mg/dL (70-110)
[2020-11-19] MEDS: levofloxacin-dextrose 5 % 750 MG/150 ML PREMIX 100 MG IV (12:41)
[2020-11-19 16:40] LABS: Glucose Point of Care 155 mg/dL (70-110)
--- NOTE | 2020-11-19 16:59 | P.PN_ITS ---
Subjective Subjective: Interval history: Today she is bothered by significant nausea, has had several episodes of diarrhea. Appetite is very poor. States perhaps having minute improvement in sense of smell. Vitals/I&O/Wt Last Vital Signs Temp 97.4 F L 11/19/20 12:00 Pulse 86 11/19/20 15:23 Resp 17 11/19/20 15:21 BP 114/74 11/19/20 12:00 Pulse Ox 97 11/19/20 15:21 11/19/20 11/19/20 11/19/20 06:59 14:59 22:59 Intake Total 1000 / 2970 510 / 510 Output Total 300 / 1350 Balance 700 / 1620 510 / 510 Physical Exam Const: COMMON NORMALS: no acute distress, patient oriented x3 and alert GENERAL APPEARANCE: comfortable (At rest) ORIENTATION/CONSCIOUSNESS: Yes aw penny HENMT: COMMON NORMALS: oropharynx normal Neck/C-Spine: COMMON NORMALS: no JVD Resp: COMMON NORMALS: normal respiratory effort and clear to auscultation bilaterally AUSCULTATION: clear to auscultation bilaterally Cardio: COMMON NORMALS: no JVD, regular rhythm, S1 normal heart sound present, S2 normal heart sound present and No murmurs present (Cardio) RHYTHM: regular rhythm HEART SOUNDS: S1 normal heart sound present and S2 normal heart sound present GI: COMMON NORMALS: Normal to inspection, nondistended, normoactive bowel sounds present, Soft to palpation and non-tender PALPATION: Yes Soft to palpation Extremity: COMMON NORMALS: no joint enlargement and no pedal edema Neuro: COMMON NORMALS: patient oriented x3 and moves all extremities SENSORIUM/ORIENTATION: Yes alert Skin: COMMON NORMALS: no rashes or lesions noted GENERAL SKIN EXAM: no rash es or lesions noted Data : 11/19/20 06:05 11/19/20 06:05 Micro: Microbiology 11/17/20 16:00 Urine Culture - Preliminary Urine,Clean Catch 11/17/20 17:10 Blood Culture - Preliminary Blood NEGATIVE TO DATE 11/17/20 16:04 Blood Culture - Preliminary Blood NEGATIVE TO DATE A&P Assessment and plan (1) Ongoing symptomatic disease due to COVID-19 virus: Today bothered by nausea, diarrhea. Persistent hypoxia requiring 4 L of oxygen by nasal cannula, although by this evening appears to be doing little bit better down to 2 L. Discussed with her CRP and D-dimer are somewhat better today. Appears overall perhaps may hopefully continue to improve. Continue remdesivir for PCR positive severe COVID-19. Continues Decadron. Continue prophylactic Lovenox. Inhalers. Added Zofran. Added Robitussin. Status: Acute (2) Sepsis: Resolving sepsis. Resolved leukopenia, resolved tachypnea. Continue treatment of severe COVID-19 as above. Treat possible concomitant bacterial infection. Treat UTI. Follow urine culture. With leukopenia, transaminitis, will check tick panel. Status: Acute Additional A&P Information UTI: Continue antibiotic. Follow-up urine culture. No sign of obstruction on CT abdomen pelvis. Rhabdomyolysis: Improving. DC IV fluid. Discussed with her. Recheck CK. Chronic kidney disease Transaminitis: Secondary to COVID-19. Also rhabdomyolysis. With improvement. Pending tick panel, although unlikely given other causes. Is noted to have appearance of fatty liver infiltration on imaging. Severe dehydration: Rehydrated. Rhabdomyolysis improving. DC IV fluid. Hematuria: Discussed with her. May be secondary to menses and she states she is currently on her period. Discussed with her to follow-up UA with primary provider to reassess for resolution. Attestations Medical Necessity Statement*: Continue admission for assessment of management of severe COVID-19, improving hypoxic respiratory failure, resolving sepsis. Coding Level of Care Code Acute Mexican Food Maker Hand for Bhanu Sanchez Diagnoses Ongoing symptomatic disease due to COVID-19 virus U07.1 Sepsis A41.9
[2020-11-19] MEDS: remdesivir 100 MG in sodium chloride 0.9% (100 ml) 100 ML IV (17:33)
[2020-11-19 21:10] LABS: Glucose Point of Care 187 mg/dL (70-110)
[2020-11-19] MEDS: enoxaparin 40 mg/0.4 mL Syringe SUBCUT (21:29)
[2020-11-20] VITALS (8 sets, daily range): BP systolic 133–161; BP diastolic 78–89; PULSE 57–88; RESP 16–20; TEMP 36.4–37.1; O2SAT 94–98
[2020-11-20 07:05] LABS: Glucose Point of Care 146 mg/dL (70-110)
[2020-11-20 07:27] LABS: Basophils % 0.2 %; Hematocrit 33.4 % (37.0-47.0); Hemoglobin 9.6 g/dL (11.5-15.3); Lymphocytes # 1.1 10^3/uL (0.8-4.8); Lymphocytes % 25.6 %; Mean Corpuscular HGB Conc 28.7 g/dL (30.0-36.0); Mean Corpuscular Hemoglobin 20.5 pg (28.0-34.0); Mean Corpuscular Volume 71.4 fL (81-99); Monocytes # 0.4 10^3/uL (0.2-0.9); Monocytes % 9.3 %; Neutrophils # 2.68 10^3/uL (1.8-7.7); Neutrophils % 64.2 %; Nucleated Red Blood Cells % 0 %; Platelet Count 222 10^3/cmm (130-400); Red Blood Count 4.68 10^6/uL (4.1-5.3); Red Cell Distribution Width 16.7 % (12.1-15.1); White Blood Count 4.2 10^3/uL (4.0-10.0)
[2020-11-20 07:55] LABS: D Dimer 0.98 ug/mIFEU (0-0.59)
[2020-11-20 08:06] LABS: Alanine Aminotransferase 129 U/L (0-33); Albumin Level 3.2 g/dL (3.5-5.2); Alkaline Phosphatase 52 IU/L (35-105); Anion Gap 14.2 (5-19); Aspartate Amino Transferase 157 U/L (0-32); Blood Urea Nitrogen 25 mg/dL (6-20); Calcium 8.2 mg/dL (8.5-10.5); Carbon Dioxide 21 mmol/L (22-29); Chloride 108 mmol/L (98-107); Globulin 2.6 g/dL (1.3-4.6); Glucose 127 mg/dL (65-115); Osmolality Calculated 294 mOsm/kg (285-295); Potassium 4.2 mmol/L (3.5-5.1); Sodium 139 mmol/L (136-145); Total Bilirubin 0.4 mg/dL (0.15-1.2); Total Protein 5.8 g/dL (6.6-8.7)
[2020-11-20 08:29] LABS: Slide Review Slide Review Perform
[2020-11-20 08:40] LABS: Creatine Phosphokinase 1438 U/L (26-192)
[2020-11-20] MEDS: dexamethasone 4 mg Tablet 6 MG PO (10:14)
[2020-11-20] MEDS: ascorbic acid 500 mg Tablet PO (10:16)
[2020-11-20] MEDS: zinc gluconate 50 mg Tablet PO (10:16)
[2020-11-20] MEDS: guaiFENesin-dextromethorphan UDC 10 mL PO ×2 (10:25→21:48)
[2020-11-20] MEDS: labetalol 200 mg Tablet PO ×2 (10:26→18:02)
[2020-11-20] MEDS: acetaminophen 500 mg Tablet PO (10:26)
[2020-11-20 10:56] LABS: Glucose Point of Care 161 mg/dL (70-110)
[2020-11-20 10:56] LABS: Glucose Point of Care 172 mg/dL (70-110)
[2020-11-20 10:56] LABS: Glucose Point of Care 282 mg/dL (70-110)
[2020-11-20 10:56] LABS: Glucose Point of Care 165 mg/dL (70-110)
[2020-11-20 12:17] LABS: Lyme AB Screen <0.90 index
[2020-11-20] MEDS: levofloxacin-dextrose 5 % 750 MG/150 ML PREMIX 100 MG IV (16:04)
[2020-11-20 17:34] LABS: Glucose Point of Care 221 mg/dL (70-110)
[2020-11-20] MEDS: remdesivir 100 MG in sodium chloride 0.9% (100 ml) 100 ML IV (18:03)
[2020-11-20 20:29] LABS: Glucose Point of Care 224 mg/dL (70-110)
[2020-11-20] MEDS: enoxaparin 40 mg/0.4 mL Syringe SUBCUT (20:35)
--- NOTE | 2020-11-20 21:08 | P.PN_ITS ---
Subjective Subjective: Interval history: Gradually getting better. Got winded today while trying to take a shower. Otherwise at rest and with minimal exertion feels more comfortable. Denies chest pain or pressure. Nausea, vomiting, diarrhea appears to have subsided. Vitals/I&O/Wt Last Vital Signs Temp 97.5 F L 11/20/20 20:00 Pulse 88 11/20/20 20:40 Resp 17 11/20/20 20:40 BP 155/85 11/20/20 20:00 Pulse Ox 97 11/20/20 20:40 11/20/20 11/20/20 11/20/20 06:59 14:59 22:59 Intake Total 840 / 840 250 / 1090 Balance 840 / 840 250 / 1090 Physical Exam Const: COMMON NORMALS: no acute distress, patient oriented x3 and alert GENERAL APPEARANCE: comfortable (At rest) ORIENTATION/CONSCIOUSNESS: Yes awake HENMT: COMMON NORMALS: oropharynx normal Neck/C-Spine: COMMON NORMALS: no JVD Resp: COMMON NORMALS: normal respiratory effort and clear to auscultation bilaterally AUSCULTATION: clear to auscultation bilaterally Cardio: COMMON NORMALS: no JVD, regular rhythm, S1 normal heart sound present, S2 normal heart sound present and No murmurs present (Cardio) RHYTHM: regular rhythm HEART SOUNDS: S1 normal heart sound present and S2 normal heart sound present GI: COMMON NORMALS: Normal to inspection, nondistended, normoactive bowel sounds present, Soft to palpation and non-tender PALPATION: Yes Soft to palpation Extremity: COMMON NORMALS: no joint enlargement and no pedal edema Neuro: COMMON NORMALS: patient oriented x3 and moves all extremities SENSORIUM/ORIENTATION: Yes alert Skin: COMMON NORMALS: no rashes or lesions noted GENERAL SKIN EXAM: no rashes or lesions noted Data : 11/20/20 07:07 11/20/20 07:07 Micro: Microbiology 11/17/20 16:00 Urine Culture - Final Urine,Clean Catch A&P Assessment and plan (1) Ongoing symptomatic disease due to COVID-19 virus: Hypoxia with gradual improvement, currently requiring 2 L nasal cannula. Dyspnea with exertion/taking shower. Otherwise nausea, diarrhea. Of subsided. CRP, D-dimer gradual decrease. Overall she feels she is approaching time that she may be ready to return home. Discussed with her we will continue remdesivir, she has additional dose remaining. Continue to wean off oxygen as tolerating. Appears she may require some oxygen to take home to continue recovery. Discussed also with her continu ation of antibiotics to complete course for superimposed bacterial pneumonia. Likely would not continue steroids on discharge. Discussed with her consideration also regarding risk of VTE, although her risk appears to be lower as she is mobilizing quite readily, is usually reactive, and D-dimer does not appear more than twice upper normal limit. In case she continues to improve, after completion remdesivir consideration may be given for her to return home possibly tomorrow. Status: Acute (2) Sepsis: Resolved. Resolved leukopenia, resolved tachypnea. Requested tick panel. Status: Acute Additional A&P Information UTI: Continue antibiotic. Follow-up urine culture. No sign of obstruction on CT abdomen pelvis. Rhabdomyolysis: Improving. Chronic kidney disease Transaminitis: Secondary to COVID-19. Also rhabdomyolysis. With improvement. Pending tick panel, although unlikely given other causes. Is noted to have appearance of fatty liver infiltration on imaging. Severe dehydration: Rehydrated. Rhabdomyolysis improving. Off IVF. Hematuria: Discussed with her. May be secondary to menses and she states she is currently on her period. Discussed with her to follow-up UA with primary provider to reassess for resolution. Attestations Medical Necessity Statement*: Continue admission for assessment management of severe COVID-19. Coding Level of Care Code Acute Configuration Management Specialist for Bhanu Sanchez Diagnoses Ongoing symptomatic disease due to COVID-19 virus U07.1 Sepsis A41.9
[2020-11-21] VITALS (8 sets, daily range): BP systolic 140–152; BP diastolic 75–90; PULSE 44–84; RESP 17–18; TEMP 36.1–36.8; O2SAT 87–97
[2020-11-21 06:07] LABS: D Dimer 2.13 ug/mIFEU (0-0.59); Hematocrit 30.9 % (37.0-47.0); Hemoglobin 9.5 g/dL (11.5-15.3); Lymphocytes # 1.1 10^3/uL (0.8-4.8); Lymphocytes % 23.5 %; Mean Corpuscular HGB Conc 30.7 g/dL (30.0-36.0); Mean Corpuscular Hemoglobin 20.4 pg (28.0-34.0); Mean Corpuscular Volume 66.5 fL (81-99); Monocytes # 0.6 10^3/uL (0.2-0.9); Monocytes % 12.1 %; Neutrophils # 3.07 10^3/uL (1.8-7.7); Neutrophils % 63.2 %; Nucleated Red Blood Cells % 0.4 %; Platelet Count 237 10^3/cmm (130-400); Red Blood Count 4.65 10^6/uL (4.1-5.3); Red Cell Distribution Width 16.1 % (12.1-15.1); White Blood Count 4.9 10^3/uL (4.0-10.0)
[2020-11-21 06:21] LABS: Alanine Aminotransferase 114 U/L (0-33); Albumin Level 3.3 g/dL (3.5-5.2); Alkaline Phosphatase 55 IU/L (35-105); Anion Gap 13.1 (5-19); Aspartate Amino Transferase 107 U/L (0-32); Blood Urea Nitrogen 28 mg/dL (6-20); C Reactive Protein 4.3 mg/L (0.0-4.9); Calcium 8.2 mg/dL (8.5-10.5); Carbon Dioxide 23 mmol/L (22-29); Chloride 105 mmol/L (98-107); Creatinine Clr Calc Pharmacy 98.6007; Globulin 2.8 g/dL (1.3-4.6); Glomerular Filtration Rate 67.7 mL/min (90-130); Glucose 136 mg/dL (65-115); Osmolality Calculated 292 mOsm/kg (285-295); Potassium 4.1 mmol/L (3.5-5.1); Sodium 137 mmol/L (136-145); Total Bilirubin 0.4 mg/dL (0.15-1.2); Total Protein 6.1 g/dL (6.6-8.7)
[2020-11-21 06:44] LABS: Glucose Point of Care 153 mg/dL (70-110)
[2020-11-21 06:54] LABS: Creatine Phosphokinase 782 U/L (26-192)
[2020-11-21 07:25] LABS: Slide Review Slide Review Perform
[2020-11-21] MEDS: albuterol 8 gm MDI 2 PUFF INHALATION (08:27)
[2020-11-21] MEDS: zinc gluconate 50 mg Tablet PO (10:24)
[2020-11-21] MEDS: ascorbic acid 500 mg Tablet PO (10:24)
[2020-11-21] MEDS: labetalol 200 mg Tablet PO (10:24)
[2020-11-21] MEDS: dexamethasone 4 mg Tablet 6 MG PO (10:25)
[2020-11-21 11:30] LABS: Glucose Point of Care 114 mg/dL (70-110)
[2020-11-21] MEDS: ondansetron 2 mg/ML SDV 2 mL 4 MG IVP (12:35)
[2020-11-21] MEDS: levofloxacin-dextrose 5 % 750 MG/150 ML PREMIX 100 MG IV (13:51)
[2020-11-21 17:08] LABS: E. Chaffeensis AB IGG <1:64; E. Chaffeensis AB IGM <1:20
--- NOTE | 2020-11-21 21:29 | P.DS_ITS ---
Discharge Providers Date of Admission: 11/17/20 19:30 Date of Discharge: November 21, 2020 Attending Provider at Admission: Chelsea Goodson MD Attending Provider at Discharge: Rey Colon Diagnoses at Discharge Discharge Diagnosis (1) Ongoing symptomatic disease due to COVID-19 virus: Status: Acute (2) Sepsis: Status: Acute Reason for Visit Reason for Visit: COVID SYMPTOMS HIGH FEVER Hospital Course Hospital Course Pleasant 45-year-old lady with history of chronic kidney disease, HTN, overweight, was admitted after presenting with symptoms concerning for COVID-19, with new onset hypoxia requiring 4 L of oxygen by nasal cannula. With nonspecific groundglass infiltrates on chest x-ray. With transaminitis. With hepatomegaly, with echogenicity consistent with hepatic steatosis on ultrasonography. No gallbladder disease. CT abdomen pelvis with groundglass in filtrates in bilateral lung bases, decreased hepatic density consistent with hepatic steatosis, old granulomatous disease. She was started empirically initially on treatment with remdesivir, Decadron, prophylactic Lovenox, inhalers, IV hydration for dehydration, subsequently with identified also rhabdomyolysis, with acute kidney injury on presentation, both of which have been resolving. She subsequently tested positive for COVID-19 by PCR. With treatment her dyspnea and hypoxia have shown progressive improvement. Oxygen requirement decreased, and she was doing well by the end of hospitalization with 2 L nasal cannula. She is been mobilizing and is rather active at baseline. Last few days she has been having nausea, diarrhea which are improving. She is tolerating oral intake. Creatinine decreased from 1.4-0.9. Rhabdomyolysis with improvement in CK from 6659 down to 782. CRP has decreased down to normal. Transaminitis with improvement, AST 371-107, ALT 203-114. Due to also noted urinary tract infection, sepsis on presentation, as well as with productive cough with possible superimposed bacterial pulmonary infection she was also treated with Levaquin. She completed 5-day course of remdesivir, Decadron. She was feeling better to the point of returning home. At discharge she is still requiring 2 L of oxygen at rest, with exertion up to 3. As D-dimer remained elevated and with some rise today up to 2.13, and she is not yet completely mobilizing to baseline she was concerned regarding risk of VTE with COVID-19, and so we will continue for now with Xarelto at prophylactic dose after discussion of risks and benefits (she is currently on her menses, microscopic hematuria noted on presentation.). We discussed exercising caution as she understands that the course of illness with COVID-19 sometimes may be difficult to predict, in people who have shown continued improvement may suddenly decline. She understands to seek medical attention in case of any concerning symptoms. At next assessment please follow-up regarding continued improvement in hypoxia, please reassess renal function, liver parameters. Please reassess urine to confirm resolution of microscopic hematuria. She was curious about reassessment imaging of the chest. Please revisit this during her visit. Please continue follow-up and assessment treatment of noted hepatomegaly and fatty liver infiltration. Physical Exam Const: COMMON NORMALS: no acute distress, patient oriented x3 and alert GENERAL APPEARANCE: comfortable ORIENTATION/CONSCIOUSNESS: Yes awake OTHER: Pleasant, conversant, in good spirits. HENMT: COMMON NORMALS: oropharynx normal Neck/C-Spine: COMMON NORMALS: no JVD Resp: COMMON NORMALS: normal respiratory effort and clear to auscultation bilaterally AUSCULTATION: clear to auscultation bilaterally Cardio: COMMON NORMALS: no JVD, regular rhythm, S1 normal heart sound present, S2 normal heart sound present and No murmurs present (Cardio) RHYTHM: regular rhythm HEART SOUNDS: S1 normal heart sound present and S2 normal heart sound present GI: COMMON NORMALS: Normal to inspection, nondistended, normoactive bowel sounds present, Soft to palpation and non-tender PALPATION: Yes Soft to palpation Extremity: COMMON NORMALS: no joint enlargement and no pedal edema Neuro: COMMON NORMALS: patient oriented x3 and moves all extremities SENSORIUM/ORIENTATION: Yes alert Skin: COMMON NORMALS: no rashes or lesions noted GENERAL SKIN EXAM: no rashes or lesions noted Discharge Data Data Completed and Pending: Completed Studies During Hospitalization Category Date Time Status CT abdomen pelvis w con* [id number] Stat Cat Scan 11/17/20 17:00 Completed XR chest 1V arik ble [id number] Stat Exams 11/17/20 15:08 Completed US gall bladder 7 [id number] Urgent Ultrasound 11/17/20 16:59 Completed Pending at discharge Category Date Time Status Blood Culture Sta t Lab 11/17/20 17:10 Results Tick Panel Routin e Lab 11/18/20 13:59 Results Labs from last 24 hours 11/21/20 11/21/20 11/21/20 11:22 06:21 05:14 WBC RBC Hgb Hct MCV MCH MCHC RDW Plt Count MPV Neut % (Auto) Lymph % (Auto) [place] % (Auto) Eos % (Auto) Baso % (Auto) Neut # (Auto) Lymph # (Auto) [place] # (Auto) Eos # (Auto) Baso # (Auto) Nucleated RBC % (a uto) Nucleated RBCs # D-Dimer Sodium Potassium Chloride Carbon Dioxide Anion Gap BUN Creatinine GFR Calculation Glucose POC Glucose 114 H 153 H Calculated Osmolal ity Calcium Total Bilirubin AST ALT Alkaline Phosphata se Creatine Kinase 782 H* C-Reactive Protein Total Protein Albumin Globulin E. chaffeensis IgG Ab E. chaffeensis IgM Ab E. chaffeensis Int erp E. chaffeensis Com [facility] 11/21/20 11/21/20 11/21/20 05:14 05:14 05:14 WBC 4.9 RBC 4.65 Hgb 9.5 L Hct 30.9 L MCV 66.5 L D MCH 20.4 L MCHC 30.7 D RDW 16.1 H Plt Count 237 MPV Not Reportable Neut % (Auto) 63.2 Lymph % (Auto) 23.5 [place] % (Auto) 12.1 Eos % (Auto) 0.0 Baso % (Auto) 0.0 Neut # (Auto) 3.07 Lymph # (Auto) 1.1 [place] # (Auto) 0.6 Eos # (Auto) 0.0 Baso # (Auto) 0.0 Nucleated RBC % (a uto) 0.4 Nucleated RBCs # 0.0 D-Dimer 2.13 H Sodium 137 Potassium 4.1 Chloride 105 Carbon Dioxide 23 Anion Gap 13.1 BUN 28 H Creatinine 0.9 GFR Calculation 67.7 L Glucose 136 H POC Glucose Calculated Osmolal ity 292 Calcium 8.2 L Total Bilirubin 0.4 AST 107 H ALT 114 H Alkaline Phosphata se 55 Creatine Kinase C-Reactive Protein 4.3 Total Protein 6.1 L Albumin 3.3 L Globulin 2.8 E. chaffeensis IgG Ab E. chaffeensis IgM Ab E. chaffeensis Int erp E. chaffeensis Com [facility] 11/17/20 16:04 WBC RBC Hgb Hct MCV MCH MCHC RDW Plt Count MPV Neut % (Auto) Lymph % (Auto) [place] % (Auto) Eos % (Auto) Baso % (Auto) Neut # (Auto) Lymph # (Auto) [place] # (Auto) Eos # (Auto) Baso # (Auto) Nucleated RBC % (a uto) Nucleated RBCs # D-Dimer Sodium Potassium Chloride Carbon Dioxide Anion Gap BUN Creatinine GFR Calculation Glucose POC Glucose Calculated Osmolal ity Calcium Total Bilirubin AST ALT Alkaline Phosphata se Creatine Kinase C-Reactive Protein Total Protein Albumin Globulin E. chaffeensis IgG Ab <1:64 E. chaffeensis IgM Ab <1:20 E. chaffeensis Int erp See note E. chaffeensis Com ment Not Reportable Vitals: Last Vital Signs Temp 97.7 F 11/21/20 18:26 Pulse 58 L 11/21/20 18:26 Resp 17 11/21/20 18:26 BP 140/75 11/21/20 18:26 Pulse Ox 97 11/21/20 18:26 Discharge Plan Discharge Patient Disposition: Home Condition: Stable Prescriptions: New levofloxacin 750 mg tablet 750 mg PO DAILY 4 Days Qty: 4 RF: 0 losartan 25 mg tablet 25 mg PO DAILY Qty: 30 RF: 0 Xarelto 10 mg tablet 10 mg PO DAILY 31 Days Qty: 31 RF: 0 Continued labetalol 200 mg tablet 200 mg PO BID RF: 0 albuterol sulfate 2.5 mg /3 mL (0.083 %) solution for nebulization 2.5 mg inhalation Q6H RF: 0 Tylenol Extra Strength 500 mg Tablet 1,000 mg PO PRN RF: 0 Vitamin D2 1,250 mcg (50,000 unit) capsule 50,000 unit PO Q7D RF: 0 ProAir HFA 90 mcg/actuation Hfa Aerosol Inhaler 2 puff INHALATION Q4H PRN (Reason: Shortness Of Breath) RF: 0 Discontinued azithromycin 250 mg tablet See Rx Instructions .ROUTE .COMPLEX RF: 0 potassium chloride 10 mEq tablet extended release 20 meq PO QAM RF: 0 losartan-hydrochlorothiazide 50-12.5 mg tablet 1 tab PO DAILY RF: 0 Discharge Orders: Discharge Order (Routine); Ordered 11/21/20 Ordered By: Rey Colon Other Ambulatory Orders: DME: Oxygen (Order) Location: None Selected Ordered By: Rey Colon Referrals: Dennis Franco [Referring] - 11/25/20 4:00 pm (Please wear a mask when you go to your follow up appointment. Please stay in your vehicle and call the clinic when you arrive and a nurse will come out and get you. ) Discharge Diet: Cardiac Discharge Activity: Increase activity as tolerated and Oxygen as instructed Patient Instructions: Losartan (By mouth), Levofloxacin (By mouth), Rivaroxaban (By mouth), Viral Pneumonia (GEN), Urinary Tract Infection in Women (GEN), Rhabdomyolysis (GEN), Non-Alcoholic Fatty Liver Disease (GEN), Pneumonia Stoplight, Using Oxygen at Home Activity Restrictions/Additional Instructions: Please maintain oxygen at home to target saturation 92%. You need more oxygen with activity than at rest. In case your oxygen saturation is running below 90%, especially below 88% despite increasing oxygen flow, please seek medical attention. Similarly if you experience severe fatigue, chest pain or pressure, any worsening of nausea, vomiting, inability to tolerate food or drink, or any other concerning symptoms, please seek medical attention. Please discuss with your primary doctor to follow-up liver parameter elevation. This has been improving and suspected secondary to COVID-19, however, you are also noted to have incidentally seen fatty liver infiltration on imaging. Please discuss with your doctor strategies to manage this condition, as well as set up a regular follow-up to monitor and exclude any progression to liver cirrhosis or other concerning conditions. Continue to avoid any alcohol, even small amounts. Please discuss with your primary care doctor to follow-up for resolution of small amount of blood in your urine. Please note that blood thinner medication to prevent blood clots increases risk of bleeding, and so if you experience any concerning bleeding, noticed blood in your urine, experience prolonged or heavy menstrual period, or bleeding in the GI tract or elsewhere, please discontinue medication immediately, seek medical attention. Due to dehydration on presentation and rhabdomyolysis at this time please discontinue HCTZ and potassium supplementation. Discharge Attestations Time Spent in Discharge Care*: greater than 30 min Quality Metrics Clinical Quality Measures During this hospital stay, did patient experience: None Coding Level of Care Code Acute Chg FW AR note Diagnoses Ongoing symptomatic disease due to COVID-19 virus U07.1 Sepsis A41.9
[2020-11-24 22:27] LABS: RMSF IGG DETECTED; RMSF IGM NOT DETECTED
== END 2020-11-21 18:27 | disposition home or self-care (01) | DRG 871 ==
LOC: ER 18:58 → MEDSURG 11-18 03:09
PROVIDERS: Emergency Medicine; Nurse Practitioner Family; Admitting Provider Internal Medicine; Emergency Provider Emergency Medicine; Visit Provider Internal Medicine
DX: A41.9 Sepsis, unspecified organism (principal); U07.1 COVID-19; J12.82 Pneumonia due to coronavirus disease 2019; J15.9 Unspecified bacterial pneumonia; J96.91 Respiratory failure, unspecified with hypoxia; N39.0 Urinary tract infection, site not specified; M62.82 Rhabdomyolysis; N17.9 Acute kidney failure, unspecified; I12.9 Hypertensive chronic kidney disease with stage 1 through stage 4 chronic kidney disease, or unspecified chronic kidney disease; N18.30 Chronic kidney disease, stage 3 unspecified; E86.0 Dehydration; K76.0 Fatty (change of) liver, not elsewhere classified; R31.29 Other microscopic hematuria
CPT/HCPCS: 36415; 36416; 36600; 71045; 74177; 76705; 80051; 80053; 80307; 81001; 82330; 82550; 82805; 82962; 83605; 83690; 83735; 84145; 85025; 85378; 85610; 85730; 86140; 86618; 86666; 86705; 86706; 86709; 86757; 86803; 87040; 87086; 87340; 87426; 87635; 87804; 94640; 96361; 96365; 96372; 99285; J0696; J1100; J1644; J1650; J1815; J1956; J2405; J3535; J7030; J7040; J8540; Q9967